=== PATIENT | female | born 1990 | race Caucasian/White ===

== ENCOUNTER 2017-10-26 05:31 | Inpatient (IN) | payer BC, MEDICAID ==
[~2017-10-26] VITALS: Ht 160 cm; Wt 77.3 kg
[2017-10-26] VITALS (37 sets, daily range): BP systolic 101–169; BP diastolic 58–80; PULSE 61–101; TEMP 97.9–98.8
[2017-10-26] MEDS ORDERED: LEXAPRO 10MG10 MG PO (06:56)
[2017-10-26] MEDS ORDERED: PRENATAL (06:58)
[2017-10-26] MEDS ORDERED: ATARAX 25MG25 MG/TAB PO (06:58)
[2017-10-26] MEDS ORDERED: XOPENEX HF0.045 MG/A (07:14)
[2017-10-26 08:00] LABS: BASO # 0.1 (0.0-0.2); BASO % 0.3 % (0.0-2.0); EOS # 0.3 (0.0-0.7); EOS % 1.6 % (0-4.0); GRAN # 14.8 (1.4-6.5); GRAN % 73.1 % (42.2-75.2); HEMOGLOBIN 12.7 g/dl (12.5-16.0); LYMPH # 3.7 (1.2-3.4); LYMPH % 18.1 % (20.0-51.0); MEAN CELL VOLUME 89 fl (80.0-100.0); MEAN CORPUSCULAR HEMOGLOBIN 31 pg (27.0-31.0); MEAN CORPUSCULAR HGB CONC 35 g/dl (33.0-37.0); MEAN PLATELET VOLUME 11.6 fl (7.4-10.4); MONO # 1.3 (0.1-0.6); MONO % 6.2 % (1.7-9.3); PLATELET COUNT 275 K/mm3 (130-400); REDCELL DISTRIBUTION WIDTH-CV 13.6 % (11.5-14.5)
[2017-10-26 08:01] LABS: HEMATOCRIT 36.4 % (37.0-47.0)
[2017-10-27 03:30] VITALS: BP 104/85; PULSE 72; TEMP 98.3
[2017-10-27] MEDS ORDERED: IBU600 MG PO (08:52)
[2017-10-27] MEDS ORDERED: BREASTPUMP MC (08:54)
== END 2017-10-27 15:20 | disposition home or self-care (01) | DRG 775 ==
LOC: LDRO 05:31 → LDR 06:16 → OB 18:30
PROVIDERS: Obstetrics & Gynecology
PROC: 10E0XZZ Delivery of Products of Conception, External Approach (ICD-10-PCS; principal; 2017-10-26)
PROC: 0UQGXZZ Repair Vagina, External Approach (ICD-10-PCS; 2017-10-26)
DX: O60.14X0 Preterm labor third trimester with preterm delivery third trimester, not applicable or unspecified (principal); Z3A.36 36 weeks gestation of pregnancy; Z37.0 Single live birth; O99.334 Smoking (tobacco) complicating childbirth; J45.909 Unspecified asthma, uncomplicated
CPT/HCPCS: J0595; J2590; J7120

== ENCOUNTER → 2018-03-31 | Outpatient (CLI) | payer MEDICAID ==
[~2018-03-31] MED LIST: ATARAX 25MG25 MG/TAB PO; BREASTPUMP MC; IBU600 MG PO; LEXAPRO 10MG10 MG PO; PRENATAL; XOPENEX HF0.045 MG/A
== END ==
LOC: COL.RAD 13:27
DX: M46.1 Sacroiliitis, not elsewhere classified (principal); S73.192A Other sprain of left hip, initial encounter
CPT/HCPCS: A9585; Q9967

== ENCOUNTER → 2018-04-13 | Outpatient (CLI) | payer MEDICAID | LOC: COL.RAD 13:00 | DX: M25.552 Pain in left hip (principal) | CPT/HCPCS: J3301; Q9967 ==

== ENCOUNTER → 2018-07-24 | Outpatient (CLI) | payer MEDICAID | LOC: COL.PUL 12:45 | DX: J45.909 Unspecified asthma, uncomplicated (principal); F17.210 Nicotine dependence, cigarettes, uncomplicated | CPT/HCPCS: J7674 ==

== ENCOUNTER 2019-12-20 09:30 | Emergency (ER) | payer BC, MEDICAID ==
[~2019-12-20] VITALS: Ht 160 cm; Wt 63.6 kg
[2019-12-20 09:48] VITALS: BP 121/81; TEMP 98.2
[2019-12-20] MEDS ORDERED: XANAX XR0.5 MG PO (10:22)
[2019-12-20] MEDS ORDERED: RT ADVAIR HFA 2312 G IH (10:23)
[2019-12-20] MEDS ORDERED: ZYRTEC 10MG10 MG PO (10:23)
[2019-12-20] MEDS ORDERED: SINGULAIR 110 MG/TAB PO (10:23)
[2019-12-20] MEDS ORDERED: NORG-EE 0.18-01 EACH PO (10:23)
[2019-12-20] MEDS ORDERED: MOBIC15 MG PO (10:24)
[2019-12-20] MEDS ORDERED: CYMBALTA 30MG30 MG PO (10:24)
[2019-12-20] MEDS ORDERED: VRAYLAR3 MG PO (10:24)
[2019-12-20 10:34] VITALS: PULSE 85
== END 2019-12-20 10:34 | disposition home or self-care (01) ==
LOC: COL.ER 09:30
DX: S90.32XA Contusion of left foot, initial encounter (principal); W22.8XXA Striking against or struck by other objects, initial encounter; Y92.009 Unspecified place in unspecified non-institutional (private) residence as the place of occurrence of the external cause